=== PATIENT | female | born 1955 | race Caucasian/White ===

== ENCOUNTER 2018-10-14 19:21 | Emergency (ER) | payer OTHER ==
[~2018-10-14] VITALS: Ht 165.1 cm; Wt 79.5 kg
[2018-10-14 19:25] VITALS: Ht 165.1 cm; Wt 79.5 kg
[2018-10-14] MEDS ORDERED: IBUPROFEN 600 MG TAB PO ONE (20:00)
[2018-10-14] MEDS ORDERED: HYDROCODONE/APAP (5/325) TAB PO ONE ×2 (20:00→21:30)
--- NOTE | 2018-10-14 20:01 | ERD ---
ER Documentation Chief Complaint Chief Complaint ground level fall, no ko, hit head no abraision/laceration noted HPI 63-year-old female with a history of ITP, and chronic back pain brought in by ambulance for evaluation after a ground-level fall. Patient states that she was carrying some boxes when she fell backwards onto a cement wall and hit her head on the wall. Is complaining of significant pain to the back of her head as well as her neck and back. Pain is a 9 out of 10, aching, worse with movement. No loss of consciousness. No nausea, vomiting, vision disturbance, focal weakness or numbness. She does complain of some dizziness. No incontinence. ROS All systems reviewed and are negative except as per history of present illness. Allergies Allergies: Coded Allergies: benztropine (Verified Allergy, Intermediate, 10/14/18) prednisone (Verified Allergy, Mild, "my body does like it", 10/14/18) PMhx/Soc History of Surgery: Yes (CYST REMOVAL, , ) Hx Neurological Disorder: Yes (NEUROPOTHY) Hx Cardiac Disorders: Yes (HTN) Hx Psychiatric Problems: No Hx Miscellaneous Medical Probl: Yes (SPINAL STENOSIS, DEGENERATIVE DISC DISEASE, OSTEOARTHRITIS) Hx Alcohol Use: No Hx Substance Use: No Hx Tobacco Use: No Smoking Status: Never smoker FmHx Family History: No diabetes Physical Exam Vitals Vital Signs Date Temp Pulse Resp B/P (MAP) Pulse Ox O2 O2 Flow FiO2 Time Delivery Rate 10/14/18 73 19 134/71 98 Nasal 2.0 21:25 (92) Cannula 10/14/18 98.5 90 16 130/79 96 19:25 (96) Physical Exam Const: No acute distress Head: Atraumatic Eyes: Normal Conjunctiva, PERRLA, EOMI, no nystagmus ENT: Normal External Ears, Nose and Mouth. Neck: Full range of motion. No meningismus. Midline C-spine tenderness noted. No step-offs Resp: Clear to auscultation bilaterally Cardio: Regular rate and rhythm, no murmurs Abd: Soft, non tender, non distended. Normal bowel sounds Skin: No petechiae or rashes Back: Lower thoracic and lower lumbar midline tenderness without step-offs. Ext: No cyanosis, or edema Neur: Awake and alert, oriented x3, cranial nerves intact, strength and sensations intact in all 4 extremities Psych: Normal Mood and Affect Result Diagram: 10/14/181948 Results 24 hrs Laboratory Tests Test 10/14/18 19:49 White Blood Count 11.8 10^3/ul Red Blood Count 3.97 10^6/ul Hemoglobin 12.9 g/dl Hematocrit 39.0 % Mean Corpuscular Volume 98.2 fl Mean Corpuscular Hemoglobin 32.5 pg Mean Corpuscular Hemoglobin Concent 33.1 g/dl Red Cell Distribution Width 14.5 % Platelet Count 343 10^3/UL Mean Platelet Volume 9.1 fl Immature Granulocytes % 0.300 % Neutrophils % 47.3 % Lymphocytes % 42.3 % Monocytes % 6.5 % Eosinophils % 2.7 % Basophils % 0.9 % Nucleated Red Blood Cells % 0.0 /100WBC Immature Granulocytes # 0.040 10^3/ul Neutrophils # 5.6 10^3/ul Lymphocytes # 5.0 10^3/ul Monocytes # 0.8 10^3/ul Eosinophils # 0.3 10^3/ul Basophils # 0.1 10^3/ul Nucleated Red Blood Cells # 0.0 10^3/ul Current Medications Medications Dose Sig/Suman Start Time Status Last (Trade) Ordered Route PRN Stop Time Admin Dose Reason Admin 1 tab ONCE ONCE 10/14/18 DC 10/14/18 Acetaminophen PO 20:00 19:52 / 10/14/18 20:01 Hydrocodone Bitart ([place] (5/325)) Ibuprofen 600 mg ONCE ONCE 10/14/18 DC 10/14/18 (Motrin) PO 20:00 19:52 10/14/18 20:01 1 tab ONCE ONCE 10/14/18 DC 10/14/18 Acetaminophen PO 21:30 21:16 / 10/14/18 21:30 Hydrocodone Bitart ([place] (5/325)) Procedures/MDM EMERGENT LABS AND DIAGNOSTIC STUDIES: Lab Results above were reviewed and interpreted by me. CBC: no anemia or evidence of infection Radiology Results as interpreted by Radiology below were reviewed by Rajan Valerio MD: CT head, C-spine, T-spine, and L-spine showed no acute traumatic abnormalities. Incidentally noted was a left renal mass Initial Nursing notes reviewed. Previous Medical Records requested via the Electronic Health Record. EMERGENCY DEPARTMENT COURSE / MEDICAL DECISION MAKING: Patient is presenting after a ground-level fall with complaints of headache and back pain. Given her history of ITP and history of chronic steroid use for her ITP, she is at higher risk for intracranial hemorrhage and fractures. For this reason CT head and spine were ordered but did not show any significant abnormalities. CBC was normal without evidence of thrombocytopenia. Patient was treated with [place] for her pain. She was requesting a "pain shot" but I explained to the patient that this was not indicated as she has had no severe injuries. Patient is stable for discharge with continued outpatient follow-up and return precautions were given. Concussion precautions discussed. Patient's blood pressure was elevated (>120/80) but appears stable without evidence of hypertensive emergency or urgency. The patient was counseled about the risks of hypertension and urged to pursue outpatient monitoring and therapy within a week with their primary care physician. Departure Diagnosis: Primary Impression: Fall with no significant injury Encounter type: initial encounter Qualified Codes: W19.XXXA - Unspecified fall, initial encounter Additional Impressions: Head injury Encounter type: initial encounter Qualified Codes: S09.90XA - Unspecified injury of head, initial encounter Acute back pain Back pain location: back pain in unspecified location Back pain laterality: unspecified Qualified Codes: M54.9 - Dorsalgia, unspecified Condition: Stable CHUCK VALERIO MD Oct 14, 2018 20:01
[2018-10-14 21:25] VITALS: BP 134/71; PULSE 73; RESP 19
== END 2018-10-14 21:30 | disposition home or self-care (01) ==
LOC: MERGE 19:21 → E/R 19:21
DX: R51 Headache (principal); M54.9 Dorsalgia, unspecified
CPT/HCPCS: 36415; 70450; 72125; 72128; 72131; 85025